=== PATIENT | male | born 1985 | race Caucasian/White ===

== ENCOUNTER 2018-01-29 15:51 | Emergency (ER) | payer OTHER ==
[2018-01-29 16:39] VITALS: BP 105/66; PULSE 125; RESP 18
[2018-01-29] MEDS ORDERED: VANCOMYCIN 1,250 MG in SODIUM CHLORIDE 0.9% 250 ML IVPB STA (18:11)
[2018-01-29] MEDS ORDERED: SODIUM CHLORIDE 0.9% 1,000 ML IV STA (18:13)
[2018-01-29] MEDS ORDERED: AMPICILLIN-SULBACTAM 3 GM in SODIUM CHLORIDE 0.9% 100 ML IVPB STA (18:13)
--- NOTE | 2018-01-29 18:22 | ED ---
General Adult HPI - General Chief complaint: Eye Problems Stated complaint: Eye pain Source: patient Mode of arrival: ambulatory Limitations: no limitations - History of Present Illness Initial comments: Dictation was produced using [employer] dictation software. please excuse any grammatical, word or spelling errors. Chief Complaint: 32-year-old male with past medical history of throat cancer, status post chemotherapy, chronic pain presents with left eye pain. History of Present Illness: He sees had an infected eye for approximately one week. He states that his symptoms started about 7 days ago. He was seen at a clinic where he was given prescription for outpatient antibiotics. He states his symptoms and I go in and actually got worse. He follow-up by the emergency room and was told to our emergency department. Patient is complaining by father. Patient's medical history is complicated with cancer status post chemotherapy for throat cancer. He's had bilateral myringotomy tubes. Patient has any constitutional symptoms. Denies any vision loss. He states his eyes are always swollen however when he opens them he doesn't have any vision loss. He is complaining of some minor pain with eye movements. The ROS documented in this emergency department record has been reviewed and confirmed by me. Those systems with pertinent positive or negative responses have been documented in the HPI. All other systems are other negative and/or noncontributory. - Related Data Home Medications Medication Instructions Recorded Confirmed Acyclovir 400 mg PO BID 01/29/18 01/29/18 Amoxicillin 500 mg PO BID 01/29/18 01/29/18 Enoxaparin [Lovenox] 60 mg SQ Q12H 01/29/18 01/29/18 Ergocalciferol [Vitamin D2] 50,000 unit PO WEFR 01/29/18 01/29/18 Fenofibrate [Lofibra] 54 mg PO DAILY 01/29/18 01/29/18 Gabapentin [Neurontin] 900 mg PO TID 01/29/18 01/29/18 Magnesium Oxide [Mag-Ox] 250 mg PO DAILY 01/29/18 01/29/18 Morphine Sulfate ER [Ms Contin] 30 mg PO TID 01/29/18 01/29/18 Multivitamins, Thera [Multivitamin 1 tab PO DAILY 01/29/18 01/29/18 (formulary)] Nicotine 21Mg/24Hr Patch [Habitrol 1 patch TRANSDERM DAILY 01/29/18 01/29/18 21Mg/24Hr Patch] Polyethylene Glycol 3350 [Miralax] 17 gm PO DAILY 01/29/18 01/29/18 Prochlorperazine [Compazine] 10 mg PO Q6H PRN 01/29/18 01/29/18 Sennosides [Senna] 8.6 mg PO HS PRN 01/29/18 01/29/18 Sulfamethox-Tmp 800-160Mg [Bactrim 1 tab PO Q12HR 01/29/18 01/29/18 DS 800-160 mg] Ursodiol 300 mg PO BID 01/29/18 01/29/18 Venlafaxine HCl [Effexor] 75 mg PO DAILY 01/29/18 01/29/18 levOCARNitine [Levocarnitine] 330 mg PO TID 01/29/18 01/29/18 Previous Rx's Medication Instructions Recorded Clindamycin [Cleocin] 450 mg PO Q8H #45 capsule 01/29/18 Allergies Allergy/AdvReac Type Severity Reaction Status Date / Time No Known Allergies Allergy Verified 01/29/18 18:00 Review of Systems ROS Statement: Those systems with pertinent positive or pertinent negative responses have been documented in the HPI. ROS Other: All systems not noted in ROS Statement are negative. 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 Cardiovascular: Heart regular rate and rhythm, S1&S2 audible, no murmurs, rubs or gallops Chest: Lungs clear to auscultation bilaterally, no rhonchi, no wheeze, no rales Abdomen: Bowel sounds present, abdomen soft, non-tender, non-distended, no organomegaly Musculoskeletal: Pulses present and equal in all extremities, no peripheral edema Motor: Power 5/5 bilaterally, no focal deficits noted Neurological: CN II-XII grossly intact, no focal motor or sensory deficits noted Skin: Intact with no visualized rashes Psych: Normal affect and mood Limitations: no limitations Course Vital Signs 01/29/18 01/29/18 16:34 19:18 Temperature 98.3 F 98.8 F Pulse Rate 125 H Respiratory 18 Rate Blood Pressure 105/66 O2 Sat by Pulse 98 Oximetry Medical Decision Making - Medical Decision Making ED course: 32-year-old male presents with clinical presentation of preseptal cellulitis versus orbital cellulitis. Vital signs upon arrival shows heart rate of 125, rest of vital signs within normal limits. Patient failed a course of outpatient antibiotics. Patient given Unasyn and vancomycin. He is also given some morphine for his pain. Laboratory evaluation obtained. There is hemoglobin of 10.0. Rest of CBC is unremarkable. Laboratory evaluation shows sodium of 1:30. Rest of labs are grossly unremarkable. Computed tomography scan of the face showed extensive soft tissue swelling of the paranasal sinuses. There is left-sided except, most. All these findings could relate to lymphoma this involvement however there is suspicion that it is also infectious. No drainable abscess noted. Discussed patient case with his oncologist follow Dr. Grace who recommends that patient be transferred to [facility]. Patient does not want to be transferred there. Discussed patient case with our ENT doctor Dr. Lau who recommends that this is not something that he is normally involved with. Discussed patient case with Dr. Ulrich our home improvement contractor on-call who states that this is outside of his realm of work. Discussed patient case with Dr. Ugarte who also recommends patient be transferred to [facility]. Discussed the patient that he should go to [facility] for further care. He does have an appointment in 2 days ago there. Patient refuses to be transferred to [facility] were his usual care is. Discussed with patient that he could lose his vision or function in the left eye region. He could also get worsening infection with extension into his troponin. Patient understands and is willing to leave AGAINST MEDICAL ADVICE. Patient given prescription for Levaquin. He is urged to follow-up that [facility] in 2 days. Patient told to go there she did express any worsening symptoms. Patient understands the risk of refusing transfer to [facility]. - Lab Data Result diagrams: 01/29/18 18:02 01/29/18 18:02 Lab Results 01/29/18 01/29/18 01/29/18 Range/Units 17:04 18:02 18:02 WBC 6.9 (3.8-10.6) k/uL RBC 3.53 L (4.30-5.90) m/uL Hgb 10.0 L (13.0-17.5) gm/dL Hct 31.0 L (39.0-53.0) % MCV 87.8 (80.0-100.0) fL MCH 28.4 (25.0-35.0) pg MCHC 32.3 (31.0-37.0) g/dL RDW 18.3 H (11.5-15.5) % Plt Count 425 (150-450) k/uL Neutrophils % 87 % Lymphocytes % 8 % Monocytes % 4 % Eosinophils % 0 % Basophils % 0 % Neutrophils # 6.0 (1.3-7.7) k/uL Lymphocytes # 0.5 L (1.0-4.8) k/uL Monocytes # 0.3 (0-1.0) k/uL Eosinophils # 0.0 (0-0.7) k/uL Basophils # 0.0 (0-0.2) k/uL Poikilocytosis Slight Anisocytosis Slight Sodium 130 L (137-145) mmol/L Potassium 4.6 (3.5-5.1) mmol/L Chloride 95 L (98-107) mmol/L Carbon Dioxide 25 (22-30) mmol/L Anion Gap 10 mmol/L BUN 22 H (9-20) mg/dL Creatinine 0.66 (0.66-1.25) mg/dL Est GFR (CKD-EPI)AfAm >90 (>60 ml/min/1.73 sqM) Est GFR (CKD-EPI)NonAf >90 (>60 ml/min/1.73 sqM) Glucose 118 H (74-99) mg/dL Plasma Lactic Acid Luis A 1.0 (0.7-2.0) mmol/L Calcium 8.9 (8.4-10.2) mg/dL Total Bilirubin 0.3 (0.2-1.3) mg/dL AST 81 H (17-59) U/L ALT 70 (21-72) U/L Alkaline Phosphatase 102 (38-126) U/L Total Protein 6.6 (6.3-8.2) g/dL Albumin 3.2 L (3.5-5.0) g/dL Disposition Clinical Impression: Orbital cellulitis on left Disposition: HOME SELF-CARE Instructions: Orbital Cellulitis (ED) Prescriptions: Clindamycin [Cleocin] 450 mg PO Q8H #45 capsule Is patient prescribed a controlled substance at d/c from ED?: No Referrals: Garcia Vines MD [Primary Care Provider] - 1-2 days Time of Disposition: 21:28
[2018-01-29 19:08] LABS: Anisocytosis Slight; Basophils % (A) 0 %; Eosinophils % (A) 0 %; Lymphocytes # (A) 0.5 k/uL (1.0-4.8); Lymphocytes % (A) 8 %; MCH 28.4 pg (25.0-35.0); MCHC 32.3 g/dL (31.0-37.0); MCV 87.8 fL (80.0-100.0); Monocytes # (A) 0.3 k/uL (0-1.0); Monocytes % (A) 4 %; Neutrophils % (A) 87 %; Platelet Count 425 k/uL (150-450); Poikilocytosis Slight; RBC 3.53 m/uL (4.30-5.90); RDW 18.3 % (11.5-15.5); WBC 6.9 k/uL (3.8-10.6)
[2018-01-29] MEDS ORDERED: MORPHINE SULFATE 4 MG/ML SYRINGE IVP PRN (19:18)
[2018-01-29 19:19] VITALS: TEMP 98.8
[2018-01-29 19:19] LABS: ALT 70 U/L (21-72); AST 81 U/L (17-59); Albumin 3.2 g/dL (3.5-5.0); Alkaline Phosphatase 102 U/L (38-126); Anion Gap 10 mmol/L; Blood Urea Nitrogen 22 mg/dL (9-20); Calcium 8.9 mg/dL (8.4-10.2); Carbon Dioxide 25 mmol/L (22-30); Chloride 95 mmol/L (98-107); Glucose 118 mg/dL (74-99); Potassium 4.6 mmol/L (3.5-5.1); Sodium 130 mmol/L (137-145); Total Bilirubin 0.3 mg/dL (0.2-1.3); Total Protein 6.6 g/dL (6.3-8.2)
--- NOTE | 2018-01-29 20:05 | CT ---
EXAMINATION TYPE: CT facial bones w con DATE OF EXAM: 01/29/2018 COMPARISON: 01/27/2018 HISTORY: left eye pain, redness, swelling. pt states no known injury. pt is currently being treated f or lymphoma. CT DLP: 370.8 mGycm Automated exposure control for dose reduction was used. CONTRAST: CT scan of the facial bones is performed with IV Contrast, patient injected with 100 mL of Isovue 300 . TECHNIQUE: CT scan of the sinuses is performed without contrast, axial images are obtained, coronal r eformatted images are also reviewed. FINDINGS: There is soft tissue swelling anterior to the left maxilla and zygoma. There is left-sided exophthalmus. There is thickening of the retro-orbital soft tissues including extraocular muscles. Th ere is extensive opacification of the ethmoid air cells frontal sinuses. There is mucosal thickening with significant opacification also in the maxillary and sphenoid sinuses. The mandibular ring is int act. Maxilla is intact. I see no nasal bone fracture. The parotid glands are symmetric. There are mul tiple bilateral enlarged anterior triangle cervical lymph nodes that measure up to 15 mm. The submand ibular salivary glands are symmetric. There is increased soft tissue density in the posterior nasopha rynx. There is also some thickening of soft tissues around the hypopharynx. IMPRESSION: There is extensive soft tissue swelling with extensive opacification of the paranasal sin uses. There is left-sided exophthalmus. Exophthalmos appears worse than recent exam of 01/27/2018. Al l of the findings could relate to lymphomatous involvement. There is pharyngeal increased density als o consistent with inflammatory process and lymphoma.
== END 2018-01-29 21:45 | disposition home or self-care (01) ==
LOC: EC 15:51
DX: H05.012 Cellulitis of left orbit (principal); J34.89 Other specified disorders of nose and nasal sinuses; G89.29 Other chronic pain; F17.200 Nicotine dependence, unspecified, uncomplicated; Z79.01 Long term (current) use of anticoagulants; Z79.891 Long term (current) use of opiate analgesic; Z79.899 Other long term (current) drug therapy; Z85.818 Personal history of malignant neoplasm of other sites of lip, oral cavity, and pharynx; Z92.21 Personal history of antineoplastic chemotherapy; Z96.22 Myringotomy tube(s) status
CPT/HCPCS: 36415; 80053; 83605; 85025; 87040; 70487; 99284; 96365; 96367; 96366; 96368; 96375; J3370; J2270; J0295; Q9967

== ENCOUNTER 2018-10-26 21:39 | Inpatient (IN) | payer OTHER ==
[2018-10-26] MEDS ORDERED: SODIUM CHLORIDE 0.9% 1,000 ML IV STA (22:33)
[2018-10-26] MEDS ORDERED: RX INFO: IV CONTRAST WAS GIVEN 1 EACH MISC MISCELLANE PRN (23:08)
[2018-10-26 23:16] LABS: Anisocytosis Moderate; HCT 33.3 % (39.0-53.0); HGB 10.3 gm/dL (13.0-17.5); MCH 24.4 pg (25.0-35.0); MCV 78.7 fL (80.0-100.0); Mean Platelet Volume 7.4; Microcytosis Moderate; Platelet Count 147 k/uL (150-450); RBC 4.24 m/uL (4.30-5.90); WBC 2.2 k/uL (3.8-10.6)
[2018-10-26 23:24] LABS: ALT 110 U/L (21-72); AST 97 U/L (17-59); African American GFR (CKD) >90 (>60 ml/min/1.73 sqM); Albumin 3.7 g/dL (3.5-5.0); Alkaline Phosphatase 74 U/L (38-126); Anion Gap 8 mmol/L; Blood Urea Nitrogen 18 mg/dL (9-20); Calcium 8.8 mg/dL (8.4-10.2); Carbon Dioxide 27 mmol/L (22-30); Chloride 101 mmol/L (98-107); Glucose 95 mg/dL (74-99); Potassium 4.1 mmol/L (3.5-5.1); Sodium 136 mmol/L (137-145); Total Bilirubin 0.2 mg/dL (0.2-1.3); Total Protein 6.6 g/dL (6.3-8.2)
--- NOTE | 2018-10-27 00:03 | CT ---
EXAM: CT Head Without Intravenous Contrast CLINICAL HISTORY: Pain TECHNIQUE: Axial computed tomography images of the head/brain without intravenous contrast. CTDI is 0.085, 0.085, 49.1 mGy and DLP is 1100.2 mGy-cm. This CT exam was performed using one or more of the following dose reduction techniques: automated exposure control, adjustment of the mA and/or kV according to patient size, and/or use of iterative reconstruction technique. COMPARISON: MRIs 02/10/2018 FINDINGS: Brain: Unremarkable. No acute hemorrhage, large hypodensity, or significant mass effect. Ventricles: Unremarkable. No ventriculomegaly. Bones/joints: Unremarkable. No acute fracture. Soft tissues: Increased frontal/left preseptal soft tissue edema. Sinuses: Similar mucosal thickening and opacification of the paranasal sinuses. Mastoid air cells: Partial opacification of the right mastoid air cells. IMPRESSION: No acute intracranial abnormality.
--- NOTE | 2018-10-27 00:04 | CT ---
EXAM: CT Maxillofacial With Intravenous Contrast CLINICAL HISTORY: Pain TECHNIQUE: Axial computed tomography images of the face with intravenous contrast. CTDI is 45.2 mGy and DLP is 1003 mGy-cm. This CT exam was performed using one or more of the following dose reduction techniques: automated exposure control, adjustment of the mA and/or kV according to patient size, and/or use of iterative reconstruction technique. COMPARISON: 01/29/2018 FINDINGS: Bones/joints: No acute fracture. Soft tissues: Increased frontal/left preseptal soft tissue edema. Persistent thickening of the left retro-orbital soft tissues. Orbits: Unremarkable. No exophthalmus. Sinuses: Similar mucosal thickening and opacification of the paranasal sinuses. No air-fluid levels. Mastoid air cells: Partial opacification of the right mastoid air cells. IMPRESSION: Increased frontal/left preseptal soft tissue edema. Persistent partial opacification of the paranasal sinuses. Findings may be related to lymphomatous involvement.
[2018-10-27 00:07] LABS: Band Neutrophils % 1 %; Lymphocytes # (M) 0.62 k/uL (1.0-4.8); Monocytes # (M) 0.24 k/uL (0-1.0); Neutrophils % (M) 60 %; Nucleated Red Blood Cells 0 /100 WBC (0-0); Total Cells Counted 100
[2018-10-27] MEDS ORDERED: VANCOMYCIN IV PER PHARMACY 1 EACH MISC MISCELLANE PRN (01:18)
[2018-10-27] MEDS ORDERED: VANCOMYCIN 1,000 MG in SODIUM CHLORIDE 0.9% 250 ML IVPB STA ×5 (01:22→01:23)
--- NOTE | 2018-10-27 01:33 | ED ---
General Adult HPI - General Source: patient, RN notes reviewed, old records reviewed Mode of arrival: ambulatory Limitations: no limitations <Enrrique Bowden - Last Filed: 10/27/18 01:50> <Manuelito Ball - Last Filed: 10/27/18 04:54> - General Chief complaint: Skin/Abscess/Foreign Body Stated complaint: Facial infection/Swelling Time Seen by Provider: 10/26/18 22:14 - History of Present Illness Initial comments: 33-year-old male patient with past history of non-Hodgkin's lymphoma presents to ED with facial swelling approximately 3 weeks. She reports that he had previously received chemotherapy and treatment at [facility]. Patient reportedly is believed to be in remission until it was determined approximately 1 month ago that his cancer has had a recurrence. Patient states that he hasn't previously had similar facial swelling approximately one year ago. Reports that approximately 3 weeks ago he began to develop worsening facial swelling on his eyes and his lips bilaterally. She states this has progressively worsened. Patient also reports that he has developed some erythema around his nail region. Denies any fevers chills, nausea vomiting diarrhea, chest pain or shortness of breath. Patient states that he is extending to establish care with her oncologist in the [place] region. Systemic: Pt denies fatigue, fever/chills, rash. Pt denies weakness, night sweats, weight loss. Neuro: Pt denies headache, visual disturbances, syncope or pre-syncope. HEENT: Pt denies ocular discharge or irritation, otalgia, rhinorrhea, pharyngitis or notable lymphadenopathy. Cardiopulmonary: Pt denies chest pain, SOB, heart palpitations, dyspnea on exertion. Abdominal/GI: Pt denies abdominal pain, n/v/d. : Pt denies dysuria, burning w/ urination, frequency/urgency. Denies new onset urinary or bowel incontinence. MSK: Pt denies myalgia, loss of strength or function in extremities. Neuro: Pt denies new onset weakness, paresthesias. (Enrrique Bowden) - Related Data Home Medications Medication Instructions Recorded Confirmed Levofloxacin [Levaquin] 750 mg PO DAILY 10/26/18 10/26/18 Linezolid [Zyvox] 600 mg PO Q12HR 10/26/18 10/26/18 Lovenox (Unknown Mg) 1 injection SQ DAILY 10/26/18 10/26/18 metroNIDAZOLE [Flagyl] 500 mg PO TID 10/26/18 10/26/18 Allergies Allergy/AdvReac Type Severity Reaction Status Date / Time No Known Allergies Allergy Verified 10/26/18 22:42 Review of Systems ROS Other: All systems not noted in ROS Statement are negative. <Enrrique Bowden - Last Filed: 10/27/18 01:50> ROS Other: All systems not noted in ROS Statement are negative. <Manuelito Ball - Last Filed: 10/27/18 04:54> ROS Statement: Those systems with pertinent positive or pertinent negative responses have been documented in the HPI. 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 HEENT: NC/AT, trachea midline, neck supple, no lymphadenopathy. Posterior pharynx non erythematous, without exudates. External ears appear normal, without discharge. Diffuse swelling noted in anterior face. Swelling of the eyes bilaterally, lips. No edema of skull. Erythema noted to nares, no discharge. Cardiopulmonary: RRR, no murmurs, rubs or gallops, no JVD noted. Lungs CTAB in anterior and posterior danielson. No peripheral edema. Abdominal exam: Abdomen soft and non-distended. Abdomen non-tender to palpation in all 4 quadrants. Bowel sounds active in LLQ. No hepatosplenomegaly. No ecchymosis Neuro: CN II-XII grossly intact. No nuchal rigidity. No raccon eyes, no melara sign, no hemotympanum. No cervical spinal tenderness. MSK: No posterior calf tenderness bilaterally, homans sign negative bilaterally. Posterior tibialis and radial pulse +2 bilaterally. Sensation intact in upper and lower extremities. Full active ROM in upper and lower extremities, 5/5 stregnth. (Enrrique Bowden) Course Vital Signs 10/26/18 10/27/18 10/27/18 21:55 00:10 01:19 Temperature 98.4 F 99.2 F 99.8 F H Pulse Rate 100 88 72 Respiratory 18 18 18 Rate Blood Pressure 121/74 106/68 106/68 O2 Sat by Pulse 100 10 L 100 Oximetry 10/27/18 10/27/18 02:22 04:19 Temperature 99.1 F 99.2 F Pulse Rate 97 90 Respiratory 18 18 Rate Blood Pressure 95/58 118/77 O2 Sat by Pulse 98 100 Oximetry Medical Decision Making - Lab Data Result diagrams: 10/26/18 23:03 10/26/18 23:03 <Enrrique Bowden - Last Filed: 10/27/18 01:50> - Lab Data Result diagrams: 10/26/18 23:03 10/26/18 23:03 <Manuelito Ball - Last Filed: 10/27/18 04:54> - Medical Decision Making 33-year-old male patient history of non-Hodgkin's lymphoma, previous admission, now thought to be active presents to ED with 3 weeks of facial swelling. Patient also reports erythema to nares. Patient vital signs stable, low-grade fever at time of admission. Physical exam displayed: Swelling of the eyes bilaterally, lips. No edema of skull. Erythema noted to nares, no discharge. Left investigations revealed mild neutropenia of 2.2. Otherwise nonimpressive. CT facial bones with contrast displayed increase frontal/left preseptal soft tissue edema. Persistent partial opacification of the pad of her nasal sinuses. Findings may be related to lymphomatous involvement. CT brain without contrast displayed no acute intracranial abnormality. Patient started on IV an tibiotics for possible facial cellulitis. Patient will be admitted to oncology - Dr. Freemanfor further evaluation. Case discussed with Dr. Camara. (Enrrique Bowden) I saw this patient in conjunction with the physician events administrative assistant. I performed independent history and physical exam. Agree with case management. (Manuelito Ball) - Lab Data Lab Results 10/26/18 10/26/18 Range/Units 23:03 23:03 WBC 2.2 L (3.8-10.6) k/uL RBC 4.24 L (4.30-5.90) m/uL Hgb 10.3 L (13.0-17.5) gm/dL Hct 33.3 L (39.0-53.0) % MCV 78.7 L (80.0-100.0) fL MCH 24.4 L (25.0-35.0) pg MCHC 31.0 (31.0-37.0) g/dL RDW 21.0 H (11.5-15.5) % Plt Count 147 L (150-450) k/uL Neutrophils % (Manual) 60 % Band Neutrophils % 1 % Lymphocytes % (Manual) 28 % Monocytes % (Manual) 11 % Neutrophils # (Manual) 1.30 (1.3-7.7) k/uL Lymphocytes # (Manual) 0.62 L (1.0-4.8) k/uL Monocytes # (Manual) 0.24 (0-1.0) k/uL Nucleated RBCs 0 (0-0) /100 WBC Manual Slide Review Performed Anisocytosis Moderate Microcytosis Moderate Sodium 136 L (137-145) mmol/L Potassium 4.1 (3.5-5.1) mmol/L Chloride 101 (98-107) mmol/L Carbon Dioxide 27 (22-30) mmol/L Anion Gap 8 mmol/L BUN 18 (9-20) mg/dL Creatinine 0.65 L (0.66-1.25) mg/dL Est GFR (CKD-EPI)AfAm >90 (>60 ml/min/1.73 sqM) Est GFR (CKD-EPI)NonAf >90 (>60 ml/min/1.73 sqM) Glucose 95 (74-99) mg/dL Calcium 8.8 (8.4-10.2) mg/dL Total Bilirubin 0.2 (0.2-1.3) mg/dL AST 97 H (17-59) U/L ALT 110 H (21-72) U/L Alkaline Phosphatase 74 (38-126) U/L Total Protein 6.6 (6.3-8.2) g/dL Albumin 3.7 (3.5-5.0) g/dL Disposition Is patient prescribed a controlled substance at d/c from ED?: No <Barkyolis,Enrrique J - Last Filed: 10/27/18 01:50> <Manuelito Ball - Last Filed: 10/27/18 04:54> Clinical Impression: Cellulitis Disposition: ADMITTED IP TO THIS HOSP Condition: Serious
--- NOTE | 2018-10-27 01:33 | ED ---
Skin/Abscess/FB HPI - General Chief complaint: Skin/Abscess/Foreign Body Stated complaint: Facial infection/Swelling Time Seen by Provider: 10/26/18 22:14 Source: patient Mode of arrival: ambulatory Limitations: no limitations - Related Data Home Medications Medication Instructions Recorded Confirmed Lovenox (Unknown Mg) 1 injection SQ DAILY 10/26/18 10/26/18 metroNIDAZOLE [Flagyl] 500 mg PO TID 10/26/18 10/26/18 Previous Rx's Medication Instructions Recorded Meropenem [Merrem] 1 gm IVPB Q8H #42 vial 10/28/18 Pantoprazole [Protonix] 40 mg PO AC-BID 60 Days #30 10/28/18 tablet. ALPRAZolam [Xanax] 0.25 mg PO Q6HR PRN 3 Days #12 tab 10/29/18 Ibuprofen [Motrin] 600 mg PO QID PRN #60 tab 10/29/18 Meropenem [Merrem] 1 gm IVPB Q8HR vial 10/29/18 Morphine Sulfate Ir [MSIR] 15 mg PO Q3HR PRN 3 Days #24 tablet 10/29/18 Mupirocin 2% Oint [Bactroban 2% 1 applic TOPICAL TID #1 applic 10/29/18 Oint] Vancomycin 1,000 mg IVPB Q8H #42 vial 10/29/18 predniSONE 10 mg PO DIRECTED #30 tab 10/29/18 Allergies Allergy/AdvReac Type Severity Reaction Status Date / Time No Known Allergies Allergy Verified 10/26/18 22:42 Review of Systems ROS Statement: Those systems with pertinent positive or pertinent negative responses have been documented in the HPI. ROS Other: All systems not noted in ROS Statement are negative. 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 Past Psychological History: No Psychological Hx Reported Smoking Status: Current every day smoker Past Alcohol Use History: None Reported Past Drug Use History: Marijuana - Past Family History Grandma Family Medical History: Diabetes Mellitus Mother Additional Family Medical History / Comment(s): HIV General Exam Limitations: no limitations Course Vital Signs 10/26/18 10/27/18 10/27/18 21:55 00:10 01:19 Temperature 98.4 F 99.2 F 99.8 F H Pulse Rate 100 88 72 Pulse Rate [ Left] Respiratory 18 18 18 Rate Blood Pressure 121/74 106/68 106/68 Blood Pressure [Left Arm] O2 Sat by Pulse 100 10 L 100 Oximetry 10/27/18 10/27/18 10/27/18 02:22 04:19 05:10 Temperature 99.1 F 99.2 F 98.3 F Pulse Rate 97 90 Pulse Rate [ 97 Left] Respiratory 18 18 18 Rate Blood Pressure 95/58 118/77 Blood Pressure 111/67 [Left Arm] O2 Sat by Pulse 98 100 98 Oximetry - Reevaluation(s) Reevaluation #1: 10/27/18 01:[address] Freeman from oncology. Medical Decision Making - Medical Decision Making I saw this patient in conjunction with the physician assistant womens volleyball coach. I performed independent history and physical exam. Agree with case management. I discussed case with Dr. Freeman, who requested that if the patient is going to be admitted that he be a primary admission for their service to see rather than active as design center consultant group. - Lab Data Result diagrams: 10/29/18 10:30 10/29/18 08:40 Lab Results 10/26/18 10/26/18 10/26/18 Range/Units 23:03 23:03 23:03 WBC 2.2 L (3.8-10.6) k/uL RBC 4.24 L (4.30-5.90) m/uL Hgb 10.3 L (13.0-17.5) gm/dL Hct 33.3 L (39.0-53.0) % MCV 78.7 L (80.0-100.0) fL MCH 24.4 L (25.0-35.0) pg MCHC 31.0 (31.0-37.0) g/dL RDW 21.0 H (11.5-15.5) % Plt Count 147 L (150-450) k/uL Neutrophils % (Manual) 60 % Band Neutrophils % 1 % Lymphocytes % (Manual) 28 % Monocytes % (Manual) 11 % Neutrophils # (Manual) 1.30 (1.3-7.7) k/uL Lymphocytes # (Manual) 0.62 L (1.0-4.8) k/uL Monocytes # (Manual) 0.24 (0-1.0) k/uL Nucleated RBCs 0 (0-0) /100 WBC Manual Slide Review Performed Anisocytosis Moderate Microcytosis Moderate Sodium 136 L (137-145) mmol/L Potassium 4.1 (3.5-5.1) mmol/L Chloride 101 (98-107) mmol/L Carbon Dioxide 27 (22-30) mmol/L Anion Gap 8 mmol/L BUN 18 (9-20) mg/dL Creatinine 0.65 L (0.66-1.25) mg/dL Est GFR (CKD-EPI)AfAm >90 (>60 ml/min/1.73 sqM) Est GFR (CKD-EPI)NonAf >90 (>60 ml/min/1.73 sqM) Glucose 95 (74-99) mg/dL Calcium 8.8 (8.4-10.2) mg/dL Total Bilirubin 0.2 (0.2-1.3) mg/dL AST 97 H (17-59) U/L ALT 110 H (21-72) U/L Alkaline Phosphatase 74 (38-126) U/L Total Protein 6.6 (6.3-8.2) g/dL Albumin 3.7 (3.5-5.0) g/dL Hepatitis A IgM Ab Non-Reactive (Non-Reactive) Hep Bs Antigen Non-Reactive (Non-Reactive) Hep B Core IgM Ab Non-Reactive (Non-Reactive) Hep C IgG Ab Non-Reactive (Non-Reactive) Disposition Clinical Impression: Cellulitis Disposition: ADMITTED IP TO THIS HOSP Condition: Serious
[2018-10-27] MEDS ORDERED: IBUPROFEN 400 MG TAB PO PRN (01:48)
[2018-10-27] MEDS ORDERED: NALOXONE 0.4 MG/ML 1 ML VIAL IV PRN (01:48)
[2018-10-27] MEDS ORDERED: ACETAMINOPHEN TAB 325 MG TAB PO PRN (01:48)
[2018-10-27] MEDS ORDERED: NICOTINE 21MG/24HR PATCH TRANSDERM STA (02:07)
[2018-10-27] MEDS: MORPHINE SULFATE 4 MG/ML SYRINGE IV PRN ×5 (04:14→22:35)
[2018-10-27] MEDS: SODIUM CHLORIDE 0.9% 1,000 ML IV SCH ×2 (05:33→12:54)
[2018-10-27] MEDS: ENOXAPARIN 40 MG/0.4 ML SYRINGE SQ SCH (11:22)
[2018-10-27] MEDS ORDERED: methylPREDNISolone SOD SUCCI 40 MG/ML 1 ML VIAL IV STA (12:07)
--- NOTE | 2018-10-27 13:22 | P.HPIM ---
History of Present Illness 33-year-old pleasant gentleman with a known history of non-Hodgkin's lymphoma came in with complaints of facial swelling redness. Denied any fever at home but does have fever here 0.8 CAT scan of the face and head and neck did show significant sinusitis maybe due to lymphatic occlusion patient does have local is of temperature preseptal cellulitis for which patient was started on vancomycin as well as post-septal involvement of the orbits. Patient ice is swollen can't even open eyes because of which I'll give a dose of prednisone to decrease the inflammation swelling. Review of Systems REVIEW OF SYSTEMS: CONSTITUTIONAL: No fever, no malaise, no fatigue. HEENT: As mentioned in HPI CARDIOVASCULAR: No chest pain, orthopnea, PND, no palpitations, no syncope. PULMONARY: No shortness of breath, no cough, no hemoptysis. GASTROINTESTINAL: No diarrhea, no nausea, no vomiting, no abdominal pain. NEUROLOGICAL: No headaches, no weakness, no numbness. HEMATOLOGICAL: Denies any bleeding or petechiae. GENITOURINARY: Denies any burning micturition, frequency, or urgency. MUSCULOSKELETAL/RHEUMATOLOGICAL: Denies any joint pain, swelling, or any muscle pain. ENDOCRINE: Denies any polyuria or polydipsia. The rest of the 14-point review of systems is negative. 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 He lives with henry. Smoking Status: Current every day smoker Past Alcohol Use History: None Reported Past Drug Use History: Marijuana Additional Drug Use History / Comment(s): Couple times a week for marijuana. - Past Family History Grandma Family Medical History: Diabetes Mellitus Mother Additional Family Medical History / Comment(s): HIV Medications and Allergies Home Medications Medication Instructions Recorded Confirmed Type Levofloxacin [Levaquin] 750 mg PO DAILY 10/26/18 10/26/18 History Linezolid [Zyvox] 600 mg PO Q12HR 10/26/18 10/26/18 History Lovenox (Unknown Mg) 1 injection SQ DAILY 10/26/18 10/26/18 History metroNIDAZOLE [Flagyl] 500 mg PO TID 10/26/18 10/26/18 History Allergies Allergy/AdvReac Type Severity Reaction Status Date / Time No Known Allergies Allergy Verified 10/26/18 22:42 Physical Exam Vitals: Vital Signs Temp Pulse Pulse Resp BP BP Pulse Ox 10/27/18 11:52 97.3 F L 92 18 120/82 99 10/27/18 08:00 18 10/27/18 05:10 98.3 F 97 18 111/67 98 10/27/18 04:19 99.2 F 90 18 118/77 100 10/27/18 02:22 99.1 F 97 18 95/58 98 10/27/18 01:19 99.8 F H 72 18 106/68 100 10/27/18 00:10 99.2 F 88 18 106/68 10 L 10/26/18 21:55 98.4 F 100 18 121/74 100 Intake and Output 10/26/18 10/27/18 10/27/18 22:59 06:59 14:59 Intake Total 200 Balance 200 Intake: Intake, IV Titration 80 Amount Sodium Chloride 0.9% 1, 80 000 ml @ 80 mls/hr IV . [id number] [facility] Rx#:[id number] Oral 120 Other: Voiding Method Toilet Weight 54.431 kg PHYSICAL EXAMINATION: GENERAL: The patient is alert and oriented x3, not in any acute distress. Well developed, well nourished. HEENT: Patient has significant swelling on the right side of the face patient does have swelling of left side of the face as well with the swelling of both ey elids swelling of nose.. EOMI. No scleral icterus. No conjunctival pallor. Normocephalic, atraumatic. No pharyngeal erythema. No thyromegaly. CARDIOVASCULAR: S1 and S2 present. No murmurs, rubs, or gallops. PULMONARY: Chest is clear to auscultation, no wheezing or crackles. ABDOMEN: Soft, nontender, nondistended, normoactive bowel sounds. No palpable organomegaly. MUSCULOSKELETAL: No joint swelling or deformity. EXTREMITIES: No cyanosis, clubbing, or pedal edema. NEUROLOGICAL: Gross neurological examination did not reveal any focal deficits. SKIN: No rashes. Results CBC & Chem 7: 10/26/18 23:03 10/26/18 23:03 Labs: Abnormal Lab Results - Last 24 Hours (Table) 10/26/18 10/26/18 Range/Units 23:03 23:03 WBC 2.2 L (3.8-10.6) k/uL RBC 4.24 L (4.30-5.90) m/uL Hgb 10.3 L (13.0-17.5) gm/dL Hct 33.3 L (39.0-53.0) % MCV 78.7 L (80.0-100.0) fL MCH 24.4 L (25.0-35.0) pg RDW 21.0 H (11.5-15.5) % Plt Count 147 L (150-450) k/uL Lymphocytes # (Manual) 0.62 L (1.0-4.8) k/uL Sodium 136 L (137-145) mmol/L Creatinine 0.65 L (0.66-1.25) mg/dL AST 97 H (17-59) U/L ALT 110 H (21-72) U/L Thrombosis Risk Factor Assmnt - Choose All That Apply Any of the Below Risk Factors Present?: No Other Risk Factors: No Other congenital or acquired thrombophilia - If yes, enter type in comment: No Thrombosis Risk Factor Assessment Level: Very Low Risk Assessment and Plan Plan: -Preceptors allied as orbital cellulitis: Patient was started on vancomycin and the Will use prednisone for inflammation. non-Hodgkin's lymphoma: Not started on chemotherapy at -Elevated liver enzymes minimal elevation will repeat liver enzymes tomorrow hepatitis panel will be obtained as well DVT prophylaxis with Lovenox and GI prophylaxis with Pepcid
[2018-10-27 14:13] VITALS: BMI 18.2
[2018-10-27] MEDS: VANCOMYCIN 1,000 MG in SODIUM CHLORIDE 0.9% 250 ML IVPB SCH ×2 (14:27→21:35)
[2018-10-27] MEDS: KETOROLAC 30 MG/ML 1 ML VIAL IVP PRN ×2 (14:30→21:36)
--- NOTE | 2018-10-27 15:06 | P.CONS ---
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 Garrison is a very pleasant male pt seen for the 1st time on 10/[address] 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 He had embolization for persistent epistaxis at [facility], biopsy done confirmed the diagnosis, BRISEYDA positive. Staging PET 11/03/17 revealed extensive uptake in paranasal sinuses, bone marrow biopsy was negative. 11/11/17 started GELOX regimen, had 2 cycles, repeat PET revealed IN. In January 2018 he was re-admitted to [facility] with progressing pain and swelling of left sided face and proptosis, repeat biopsy was consistent with persistent disease. 02/12/2019 he was started on chemoradiation with weekly cisplatin x 4 weeks, completed 04/02/2018. PET 06/10/18 revealed SEBAS. He was lost to follow up and missed multiple appt with Dr. Grace at [facility]. 09/2018 he presented with increasing swelling and purulent drainage from left eye, repeat imaging revealed progressive disease and new rim enhancing fluid collection measuring 1.0x1.4cm draining into soft tissue defect in medial orbit. He was recently discharged from [facility], treatment with keytruda was recommended. C/O fatigue, progressive facial swelling with eye and facial pain, drainage from left orbit is stable, occasional night sweats, lost about 20 pounds over the last 6 months, sinus pressure and fullness, no vision loss but he cannot open eyes right now, GUY, no dizziness, no other drainage from face, in mouth or throat, no chills, he is able to tolerate diet, no nausea, vomiting, cough, chest pain, abd pain, changes in bowel or bladder habits, bleeding, swelling in the legs, no other skin lesions. 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 He lives with henry. Smoking Status: Current every day smoker Past Alcohol Use History: None Reported Past Drug Use History: Marijuana Additional Drug Use History / Comment(s): Couple times a week for marijuana. IVDA. - Past Family History Grandma Family Medical History: Diabetes Mellitus Mother Additional Family Medical History / Comment(s): HIV Medications and Allergies Home Medications Medication Instructions Recorded Confirmed Type Levofloxacin [Levaquin] 750 mg PO DAILY 10/26/18 10/26/18 History Linezolid [Zyvox] 600 mg PO Q12HR 10/26/18 10/26/18 History Lovenox (Unknown Mg) 1 injection SQ DAILY 10/26/18 10/26/18 History metroNIDAZOLE [Flagyl] 500 mg PO TID 10/26/18 10/26/18 History Allergies Allergy/AdvReac Type Severity Reaction Status Date / Time No Known Allergies Allergy Verified 10/26/18 22:42 Physical Exam Vitals: Vital Signs Temp Pulse Pulse Resp BP BP Pulse Ox 10/27/18 05:10 98.3 F 97 18 111/67 98 10/27/18 04:19 99.2 F 90 18 118/77 100 10/27/18 02:22 99.1 F 97 18 95/58 98 10/27/18 01:19 99.8 F H 72 18 106/68 100 10/27/18 00:10 99.2 F 88 18 106/68 10 L 10/26/18 21:55 98.4 F 100 18 121/74 100 Intake and Output 10/26/18 10/27/18 10/27/18 22:59 06:59 14:59 Intake Total 200 Balance 200 Intake: Intake, IV Titration 80 Amount Sodium Chloride 0.9% 1, 80 000 ml @ 80 mls/hr IV . [id number] [facility] Rx#:[id number] Oral 120 Other: Weight 54.431 kg - Constitutional General appearance: cooperative, mild distress, thin - EENT severe periorbital, upper lip and nasal swelling, oral mucosa hard to completely evaluate but tongue is not coated, no visible masses - Neck Neck: no lymphadenopathy - Respiratory Respiratory: bilateral: CTA - Cardiovascular Rhythm: regular Heart sounds: normal: S1, S2 Abnormal Heart Sounds: no systolic murmur, no diastolic murmur, no rub, no S3 Gallop, no S4 Gallop, no click, no other leg Peripheral Edema: bilateral: None - Gastrointestinal General gastrointestinal: no absent bowel sounds, no decreased bowel sounds, no distended, no hepatomegaly, no hyperactive bowel sounds, normal bowel sounds, no organomegaly, no rigid, scaphoid, soft, no splenomegaly, no tenderness, no umbilical hernia, no ventral hernia - Integumentary Tattoo on arms, no skin lesions visible-see HEENT - Neurologic Nop gross deficits, face is compromised due to swelling - Musculoskeletal Musculoskeletal: strength equal bilaterally - Psychiatric Psychiatric: A&O x's 3, appropriate affect, intact judgment & insight Results CBC & Chem 7: 10/26/18 23:03 10/26/18 23:03 Labs: Abnormal Lab Results - Last 24 Hours (Table) 10/26/18 10/26/18 Range/Units 23:03 23:03 WBC 2.2 L (3.8-10.6) k/uL RBC 4.24 L (4.30-5.90) m/uL Hgb 10.3 L (13.0-17.5) gm/dL Hct 33.3 L (39.0-53.0) % MCV 78.7 L (80.0-100.0) fL MCH 24.4 L (25.0-35.0) pg RDW 21.0 H (11.5-15.5) % Plt Count 147 L (150-450) k/uL Lymphocytes # (Manual) 0.62 L (1.0-4.8) k/uL Sodium 136 L (137-145) mmol/L Creatinine 0.65 L (0.66-1.25) mg/dL AST 97 H (17-59) U/L ALT 110 H (21-72) U/L Comments: Reviewed report for CT face CT Scan - head: report reviewed Assessment and Plan (1) Extranodal NK/T-cell lymphoma, nasal type Narrative/Plan: Recurrent disease, previously treated at [facility]. We were pending PD-L1 authorization ([facility] has the current auth and has to cancel it before we can get auth) but, due to pt increasingly compromised situation CD-30 target immu notherapy with brentuximab vedotin which we obtained approval for before this documentation! Want pt to be seen by ID for evaluation and recommendation then, get pt discharged as soon as safely possible so he can begin treatment. Pt must be discharged 24 hours before he can receive infusion outpatient. We will stay in close contact with Attending and ID. Current Visit: Yes Status: Chronic Priority: High Code(s): C86.0 - EXTRANODAL NK/T-CELL LYMPHOMA, NASAL TYPE SNOMED Code(s): 129469239 (2) Cellulitis Narrative/Plan: Periorbital swelling, allergic reaction, infection, mostly suspect disease progression? ID consulted for evaluation and recommendations. Current Visit: Yes Status: Acute Priority: High Code(s): L03.90 - CELLULITIS, UNSPECIFIED SNOMED Code(s): 855977383
[2018-10-27 19:09] LABS: Hepatitis A Antibody IgM Non-Reactive (Non-Reactive); Hepatitis B Core IgM Non-Reactive (Non-Reactive)
[2018-10-27] MEDS: FAMOTIDINE 20 MG TAB PO SCH (21:35)
[2018-10-27] MEDS: MUPIROCIN 2% OINT 22 GM TUBE TOPICAL SCH (21:37)
[2018-10-27] MEDS: SALT AND SODA MOUTHWASH 1,000 ML PO SCH (22:46)
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
[2018-10-28] MEDS: MEROPENEM 1 GM in SODIUM CHLORIDE 0.9% 100 ML IVPB SCH ×3 (01:02→17:40)
[2018-10-28] MEDS: SALT AND SODA MOUTHWASH 1,000 ML PO SCH ×5 (01:03→19:35)
[2018-10-28] MEDS: MORPHINE SULFATE 4 MG/ML SYRINGE IV PRN ×4 (02:50→21:55)
[2018-10-28] MEDS: VANCOMYCIN 1,000 MG in SODIUM CHLORIDE 0.9% 250 ML IVPB SCH ×3 (05:29→21:59)
[2018-10-28] MEDS: SODIUM CHLORIDE 0.9% 1,000 ML IV SCH ×2 (05:30→15:49)
[2018-10-28] MEDS: FAMOTIDINE 20 MG TAB PO SCH ×2 (07:43→21:55)
[2018-10-28] MEDS: ENOXAPARIN 40 MG/0.4 ML SYRINGE SQ SCH ×2 (07:43→11:45)
[2018-10-28] MEDS: predniSONE 20 MG TAB PO SCH (07:43)
[2018-10-28] MEDS: KETOROLAC 30 MG/ML 1 ML VIAL IVP PRN ×2 (07:46→15:50)
[2018-10-28] MEDS: MUPIROCIN 2% OINT 22 GM TUBE TOPICAL SCH ×3 (07:56→21:59)
[2018-10-28 08:29] LABS: ALT 88 U/L (21-72); AST 70 U/L (17-59); African American GFR (CKD) >90 (>60 ml/min/1.73 sqM); Albumin 2.7 g/dL (3.5-5.0); Alkaline Phosphatase 63 U/L (38-126); Anion Gap 4 mmol/L; Blood Urea Nitrogen 16 mg/dL (9-20); Calcium 8.5 mg/dL (8.4-10.2); Carbon Dioxide 28 mmol/L (22-30); Chloride 108 mmol/L (98-107); Glucose 98 mg/dL (74-99); Potassium 4.4 mmol/L (3.5-5.1); Sodium 140 mmol/L (137-145); Total Bilirubin 0.1 mg/dL (0.2-1.3); Total Protein 5.4 g/dL (6.3-8.2)
[2018-10-28] MEDS ORDERED: MORPHINE CONC SOLN 10mg/0.5mL ORAL SYRG PO PRN (11:02)
[2018-10-28] MEDS: NICOTINE 21MG/24HR PATCH TRANSDERM SCH (11:29)
[2018-10-28] MEDS ORDERED: VANCOMYCIN TROUGH DUE 1 EACH MISC MISCELLANE ONE (13:00)
--- NOTE | 2018-10-28 16:27 | P.PN ---
Subjective Progress Note Date: 10/28/18 Principal diagnosis: This is a 33-year-old male with a known history of non-Hodgkin's lymphoma was recently admitted for facial swelling and redness with cellulitis. Patient is being closely monitored. Dr. Hernandez is following the patient. Patient denies any shortness of breath, chest pain, palpitations, or throat swelling at this time. Patient does have significant orbital swelling of the left orbit in the eyelids are sealed shut due to the amount of swelling. The right displace orbital swelling but is able to see out of that eye. Patient is having a lot of nasal swelling and congestion as well. Patient is awaiting a PICC line as he will be receiving IV antibiotics and outpatient setting. Oncology is following the patient. Guarded prognosis. Objective - Vital Signs Vital signs: Vital Signs Temp 98.2 F 10/28/18 11:32 Pulse 71 10/28/18 11:32 Resp 17 10/28/18 11:32 BP 119/78 10/28/18 11:32 Pulse Ox 100 10/28/18 11:32 Intake & Output 10/27/18 10/28/18 10/28/18 18:59 06:59 18:59 Intake Total 1042.5 Balance 1042.5 Weight 54.431 kg Intake: Intake, IV Titration 1042.5 Amount Meropenem 1 gm In Sodium 100 Chloride 0.9% 100 ml @ 200 mls/hr IVPB Q8HR [facility] Rx#:[id number] Sodium Chloride 0.9% 1, 692.5 000 ml @ 80 mls/hr IV . [id number] [facility] Rx#:[id number] Vancomycin 1,000 mg In 250 Sodium Chloride 0.9% 250 ml @ 125 mls/hr IVPB Q8H [facility] Rx#:[id number] Other: Voiding Method Toilet Toilet Toilet Urinal Urinal # Voids 2 - Exam Gen: This is a 33-year-old male that is sitting up in bed and in no acute distress. Vital signs are 98.2F temp, pulse is 71, respirations are 17 and non-labored, blood pressure is 119/78, pulse ox is 100% on room air HEENT: Head is atraumatic, normocephalic. There is a profound amount of swelling of the left side of the face of upper and lower eyelids and unable to visualize the orbit, the right upper and lower eyelid had a large amount of swelling as well but is able to see out of the right eye. Significant swelling is noted of the nose with redness and crusting of the lower nares. NECK: Supple. No JVD. No lymphadenopathy. No thyromegaly. LUNGS: Clear to auscultation. No wheezes or rhonchi. No intercostal retractions. HEART: Regular rate and rhythm. No murmur. ABDOMEN: Soft. Bowel sounds are present. No masses. No tenderness. EXTREMITIES: No pedal edema. No calf tenderness. NEUROLOGICAL: Patient is awake, alert and oriented x3. Cranial nerves 2 through 12 are grossly intact. - Labs CBC & Chem 7: 10/26/18 23:03 10/28/18 07:20 Labs: Abnormal Lab Results - Last 24 Hours (Table) 10/28/18 Range/Units 07:20 Chloride 108 H (98-107) mmol/L Creatinine 0.55 L (0.66-1.25) mg/dL Total Bilirubin 0.1 L (0.2-1.3) mg/dL AST 70 H (17-59) U/L ALT 88 H (21-72) U/L Total Protein 5.4 L (6.3-8.2) g/dL Albumin 2.7 L (3.5-5.0) g/dL Microbiology - Last 24 Hours (Table) 10/26/18 23:03 Blood Culture - Preliminary Blood No Growth after 24 hours Assessment and Plan Assessment: Non-Hodgkin's lymphoma: Oncology is following Orbital cellulitis: Patient was started on IV antibiotic therapy. Infectious disease is following. Awaiting a PICC line placement in the morning and will most likely be discharged in the next 24 hours. Elevated liver enzymes with minimal elevation in her trending down ALT is 88, AST is 70. We will continue to monitor. Hepatitis panel is negative DVT prophylaxis with Lovenox: Will hold tomorrow's dose for PICC line placement GI prophylaxis with Pepcid Recommendations and discussion: Recommend continue current medications and symptomatic treatment. Closely monitor. Guarded prognosis. Further recommendations to follow. Probable discharge in the next 24 hours.
--- NOTE | 2018-10-28 17:58 | P.PN ---
Subjective Progress Note Date: 10/28/18 Principal diagnosis: Natural killer T-cell lymphoma, nasal subtype, intractable pain due to disease, suspect superimposed infection In follow-up today patient is still tolerating his oral intake, the pain regimen that he is here in the hospital is controlling his pain. No fevers, vomiting, he has had a bowel movement since admission. Objective - Vital Signs Vital signs: Vital Signs Temp 98.2 F 10/28/18 11:32 Pulse 71 10/28/18 11:32 Resp 17 10/28/18 11:32 BP 119/78 10/28/18 11:32 Pulse Ox 100 10/28/18 11:32 Intake & Output 10/27/18 10/28/18 10/28/18 18:59 06:59 18:59 Intake Total 1042.5 350 Output Total 1600 Balance 1042.5 -1250 Weight 54.431 kg Intake: Intake, IV Titration 1042.5 350 Amount Meropenem 1 gm In Sodium 100 Chloride 0.9% 100 ml @ 200 mls/hr IVPB Q8HR [facility] Rx#:[id number] Sodium Chloride 0.9% 1, 692.5 100 000 ml @ 80 mls/hr IV . [id number] [facility] Rx#:[id number] Vancomycin 1,000 mg In 250 250 Sodium Chloride 0.9% 250 ml @ 125 mls/hr IVPB Q8H [facility] Rx#:[id number] Output: Urine 1600 Other: Voiding Method Toilet Toilet Toilet Urinal Urinal # Voids 2 - Constitutional General appearance: Present: cooperative, no acute distress, thin - EENT EENT Comment(s): Periorbital swelling, nasal swelling and upper lip, causing speech deficiency. Patient is able to manually open his right eye slightly today. - Respiratory Respiratory: bilateral: CTA - Cardiovascular Rhythm: regular Heart sounds: normal: S1, S2 Abnormal Heart Sounds: Absent: systolic murmur, diastolic murmur, rub, S3 Gallop, S4 Gallop, click, other - Peripheral edema leg Peripheral Edema: bilateral: None - Gastrointestinal General gastrointestinal: Present: normal bowel sounds, scaphoid, soft - Musculoskeletal Musculoskeletal: Present: strength equal bilaterally - Psychiatric Psychiatric: Present: A&O x's 3, appropriate affect, intact judgment & insight - Labs CBC & Chem 7: 10/26/18 23:03 10/28/18 07:20 Labs: Abnormal Lab Results - Last 24 Hours (Table) 10/28/18 Range/Units 07:20 Chloride 108 H (98-107) mmol/L Creatinine 0.55 L (0.66-1.25) mg/dL Total Bilirubin 0.1 L (0.2-1.3) mg/dL AST 70 H (17-59) U/L ALT 88 H (21-72) U/L Total Protein 5.4 L (6.3-8.2) g/dL Albumin 2.7 L (3.5-5.0) g/dL Microbiology - Last 24 Hours (Table) 10/26/18 23:03 Blood Culture - Preliminary Blood No Growth after 24 hours Assessment and Plan (1) Cancer related pain Narrative/Plan: Likely exacerbated by superimposed infection as well. Pain medications have been adjusted to oral route. The next 24 hours pain control will be evaluated and titrated for optimal control so that appropriate prescriptions can be provided on discharge. Case was briefly discussed with attending as well who agrees with the plan. Medications for prevention of narcotic-induced constipation ordered. Current Visit: Yes Status: Acute Priority: High Code(s): G89.3 - NEOPLASM RELATED PAIN (ACUTE) (CHRONIC) SNOMED Code(s): 23040063718850 (2) Extranodal NK/T-cell lymphoma, nasal type Narrative/Plan: Recurrent disease, previously treated at [facility]. CD-30 target immunotherapy with brentuximab vedotin is approved. It has been ordered. Plan is for chemotherapy Thursday at 2 PM. Discussed case briefly with ID. patient's symptoms are improved with antibiotic therapy. And is to continue IV antibiotics. PICC line is placed. Case management is working on outpatient antibiotic administration. Current Visit: Yes Status: Chronic Priority: High Code(s): C86.0 - EXTRANODAL NK/T-CELL LYMPHOMA, NASAL TYPE SNOMED Code(s): 261638102 (3) Cellulitis Current Visit: Yes Status: Acute Priority: High Code(s): L03.90 - CELLULITIS, UNSPECIFIED SNOMED Code(s): 396778326
[2018-10-28] MEDS: IBUPROFEN 600 MG TAB PO SCH ×2 (19:33→23:04)
[2018-10-28] MEDS: ALPRAZolam 0.25 MG TAB PO SCH ×2 (19:34→23:04)
[2018-10-28] MEDS: PANTOPRAZOLE 40 MG TABLET PO SCH (21:55)
--- NOTE | 2018-10-28 22:38 | P.PN ---
Subjective Progress Note Date: 10/28/18 33-year-old male who has a history of NK/T cell lymphoma diagnosed approximately 1 year ago at which point in time there was involvement of the bilateral sinuses in the left orbital area. He was treated with chemotherapy and had progression of disease. Because the difficulties he is referred to [facility] and was treated. He then, because of progression of disease, was treated with a course of radiation therapy and cisplatin and apparently had significant clinical improvement. It is unrelated that he was no longer actively following up. He now presents last month with significant swelling and discomfort to the periorbital area bilaterally. He has significant swelling to the left eye such that its closed and he does not see through that eye. The right periorbital tissue also became very swollen. Because of increasing pain and discomfort and drainage he sought care at our facility. He does relate that he was at [facility] and was being treated with antibiotic therapy that included Zyvox, Levaquin, and Flagyl likely for what appeared to be a potential abscess related to the lymphoma near the left orbit. There is no notation that he was a surgical candidate. The patient was stressed by the situation at the [facility] and consequently did leave canalis presented to our facility. Local oncology is also seeing on consult. The patient believes that he's had a low-grade fever, he has had weight loss of greater than 20 pounds and is now become quite underweight. He does have some difficulties eating but is able to eat solid foods without choking or dysphagia. The patient does not have a port. 10/28/2018 patient does feel slightly better today. He however has had significant anxiety that has worsened due to his inability to smoke and his significant disease state. At one point he states to the nurse, why won't she let him smoke, he is going to anyway. At this time he is more calm and collected. He understands that with his active infection tobacco use inhibits his body to fight infection and causes him to have more pain and problems. Nicotine patch and chocolate ice cream have helped his mood. He does relate that the oral pain medication does not seem to be as effective, and this is related to the oncology team. Request for IV access as well as outpatient IV antibiotic therapy has been made trying to get authorization for his medication so that he can start his chemotherapy as soon as possible. Objective - Vital Signs Vital signs: Vital Signs Temp 98.2 F 10/28/18 11:32 Pulse 71 10/28/18 11:32 Resp 17 10/28/18 11:32 BP 119/78 10/28/18 11:32 Pulse Ox 100 10/28/18 11:32 Intake & Output 10/28/18 10/28/18 10/29/18 06:59 18:59 06:59 Intake Total 1042.5 350 Output Total 1600 Balance 1042.5 -1250 Intake: Intake, IV Titration 1042.5 350 Amount Meropenem 1 gm In Sodium 100 Chloride 0.9% 100 ml @ 200 mls/hr IVPB Q8HR JASMYN Rx#:[id number] Sodium Chloride 0.9% 1, 692.5 100 000 ml @ 80 mls/hr IV . [id number] JASMYN Rx#:[id number] Vancomycin 1,000 mg In 250 250 Sodium Chloride 0.9% 250 ml @ 125 mls/hr IVPB Q8H JASMYN Rx#:[id number] Output: Urine 1600 Other: Voiding Method Toilet Toilet Urinal Urinal - Exam 33-year-old male who despite his cancer was pleasant and cooperative, appreciative of the care he is receiving at our facility. HEENT: There is some improvement of swelling from lutheran to lutheran, bilateral periorbital area is grossly swollen and the deformity is so profound in the left that the globe of the eye cannot be seen, right eye has a significant periorbital swelling but the globe is exposed and he is able to relate that he is able to see the observer. He is also able to watch TV. The oral cavity has evidence of the significant deformities that include the tissue defect in the soft palate appears to go to the right maxillary sinus, a much smaller defect on the left soft palate also appears to go to the sinus on the left but with the significant swelling in his left evident. There was no purulent drainage in either area. Neck: The neck is supple without significant lymphadenopathy or thyromegaly. Lungs: Good bilateral air entry scattered wheezing. There is no significant bronchial sounds. There is no egophony or dullness. Heart: Regular rate and rhythm with an audible S1-S2, no S3 no S4. There is no significant murmur click or rub, PMI was nondisplaced. Abdomen: Positive bowel sounds soft and nontender without palpable masses or organomegaly. There was no guarding or rebound. Extremities: The upper extremities have excellent pulses they are symmetric, no significant petechiae or telangiectasia. No splinter hemorrhages were noted. The lower extremities are free from significant edema. The peripheral pulses were 2+ and symmetric. Neuro: Awake alert oriented to person place and time. There are no acute new gross focal sensory motor deficits.no vision on the left eye could be noted. - Labs CBC & Chem 7: 10/26/18 23:03 10/28/18 07:20 Labs: Abnormal Lab Results - Last 24 Hours (Table) 10/28/18 Range/Units 07:20 Chloride 108 H (98-107) mmol/L Creatinine 0.55 L (0.66-1.25) mg/dL Total Bilirubin 0.1 L (0.2-1.3) mg/dL AST 70 H (17-59) U/L ALT 88 H (21-72) U/L Total Protein 5.4 L (6.3-8.2) g/dL Albumin 2.7 L (3.5-5.0) g/dL Microbiology - Last 24 Hours (Table) 10/26/18 23:03 Blood Culture - Preliminary Blood No Growth after 24 hours Laboratory Results WBC 2.2 k/uL (3.8-10.6) L 10/26/18 23:03 RBC 4.24 m/uL (4.30-5.90) L 10/26/18 23:03 Hgb 10.3 gm/dL (13.0-17.5) L 10/26/18 23:03 Hct 33.3 % (39.0-53.0) L 10/26/18 23:03 MCV 78.7 fL (80.0-100.0) L 10/26/18 23:03 MCH 24.4 pg (25.0-35.0) L 10/26/18 23:03 MCHC 31.0 g/dL (31.0-37.0) 10/26/18 23:03 RDW 21.0 % (11.5-15.5) H 10/26/18 23:03 Plt Count 147 k/uL (150-450) L 10/26/18 23:03 Neutrophils % (Manual) 60 % 10/26/18 23:03 Band Neutrophils % 1 % 10/26/18 23:03 Lymphocytes % (Manual) 28 % 10/26/18 23:03 Monocytes % (Manual) 11 % 10/26/18 23:03 Neutrophils # (Manual) 1.30 k/uL (1.3-7.7) 10/26/18 23:03 Lymphocytes # (Manual) 0.62 k/uL (1.0-4.8) L 10/26/18 23:03 Monocytes # (Manual) 0.24 k/uL (0-1.0) 10/26/18 23:03 Nucleated RBCs 0 /100 WBC (0-0) 10/26/18 23:03 Manual Slide Review Performed 10/26/18 23:03 Anisocytosis Moderate 10/26/18 23:03 Microcytosis Moderate 10/26/18 23:03 Sodium 140 mmol/L (137-145) 10/28/18 07:20 Potassium 4.4 mmol/L (3.5-5.1) 10/28/18 07:20 Chloride 108 mmol/L (98-107) H 10/28/18 07:20 Carbon Dioxide 28 mmol/L (22-30) 10/28/18 07:20 Anion Gap 4 mmol/L 10/28/18 07:20 BUN 16 mg/dL (9-20) 10/28/18 07:20 Creatinine 0.55 mg/dL (0.66-1.25) L 10/28/18 07:20 Est GFR (CKD-EPI)AfAm >90 (>60 ml/min/1.73 sqM) 10/28/18 07:20 Est GFR (CKD-EPI)NonAf >90 (>60 ml/min/1.73 sqM) 10/28/18 07:20 Glucose 98 mg/dL (74-99) 10/28/18 07:20 Calcium 8.5 mg/dL (8.4-10.2) 10/28/18 07:20 Total Bilirubin 0.1 mg/dL (0.2-1.3) L 10/28/18 07:20 AST 70 U/L (17-59) H 10/28/18 07:20 ALT 88 U/L (21-72) H 10/28/18 07:20 Alkaline Phosphatase 63 U/L (38-126) 10/28/18 07:20 Total Protein 5.4 g/dL (6.3-8.2) L 10/28/18 07:20 Albumin 2.7 g/dL (3.5-5.0) L 10/28/18 07:20 Vancomycin Trough 5.4 ug/mL 10/28/18 13:35 Hepatitis A IgM Ab Non-Reactive (Non-Reactive) 10/26/18 23:03 Hep Bs Antigen Non-Reactive (Non-Reactive) 10/26/18 23:03 Hep B Core IgM Ab Non-Reactive (Non-Reactive) 10/26/18 23:03 Hep C IgG Ab Non-Reactive (Non-Reactive) 10/26/18 23:03 Microbiology 10/26/18 23:03 Blood Blood Culture - Preliminary No Growth after 24 hours Assessment and Plan (1) Extranodal NK/T-cell lymphoma, 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 The patient is quite miserable, with swelling and discomfort to the region. Left eye is grossly swollen and the globe cannot be seen. Right eye is swollen but is able to see and watch TV. Patient is being evaluated by oncology for the next plans. For now the severe infection in the region is being treated. Looking for some information from [facility] as far as cultures. They had him on Zyvox, Levaquin and metronidazole. In hospital he is being treated with vancomycin, and meropenem has been added for the sinus based infection. The patient is grossly underweight and protein supplements and been requested the patient does not have true difficulty with swallowing but does have somewhat of a poor appetite. May need stimulants. Patient will likely need IV access and arrangements for outpatient venous antibiotic therapy, may be challenging because of their home in [place]. There is crusting and irritation of the tissue just below the nasal septum and mupirocin is requested to be applied to that region. Patient would do well to have social work administrator evaluation. 10/28/2018 patient has had some agitation but he has now calmed down and actually relates is feeling slightly better. There is a bit worried because the oral pain medication did not seem to be nearly as effective as the IV. He is very anxious about the plans. Goal is to arrange outpatient intravenous antibiotic therapy so he can start his chemotherapy as soon as possible to try to allow him to have some improvement of his current status. Cultures negative so far. Current Visit: Yes Status: Acute Code(s): L03.211 - CELLULITIS OF FACE SNOMED Code(s): 436557502
[2018-10-29] MEDS: SALT AND SODA MOUTHWASH 1,000 ML PO SCH ×4 (01:06→15:50)
[2018-10-29] MEDS: MEROPENEM 1 GM in SODIUM CHLORIDE 0.9% 100 ML IVPB SCH ×3 (01:36→15:49)
[2018-10-29] MEDS: MORPHINE SULFATE IR 15 MG TABLET PO PRN ×6 (01:45→18:26)
[2018-10-29] MEDS: SODIUM CHLORIDE 0.9% 1,000 ML IV SCH ×2 (04:11→18:21)
[2018-10-29 05:05] VITALS: PULSE 80
[2018-10-29] MEDS: VANCOMYCIN 1,000 MG in SODIUM CHLORIDE 0.9% 250 ML IVPB SCH ×2 (06:06→15:39)
[2018-10-29] MEDS: ALPRAZolam 0.25 MG TAB PO SCH ×2 (08:09→15:51)
[2018-10-29] MEDS: PANTOPRAZOLE 40 MG TABLET PO SCH ×2 (08:09→08:12)
[2018-10-29] MEDS: IBUPROFEN 600 MG TAB PO SCH ×3 (08:10→18:27)
[2018-10-29] MEDS: predniSONE 20 MG TAB PO SCH (08:12)
[2018-10-29] MEDS: FAMOTIDINE 20 MG TAB PO SCH (08:12)
[2018-10-29] MEDS: NICOTINE 21MG/24HR PATCH TRANSDERM SCH (08:12)
[2018-10-29] MEDS: MUPIROCIN 2% OINT 22 GM TUBE TOPICAL SCH ×2 (08:18→15:49)
[2018-10-29 09:23] LABS: African American GFR (CKD) >90 (>60 ml/min/1.73 sqM); Anion Gap 7 mmol/L; Blood Urea Nitrogen 22 mg/dL (9-20); Calcium 8.7 mg/dL (8.4-10.2); Carbon Dioxide 22 mmol/L (22-30); Chloride 112 mmol/L (98-107); Glucose 87 mg/dL (74-99); Potassium 4.9 mmol/L (3.5-5.1); Sodium 141 mmol/L (137-145)
[2018-10-29] MEDS ORDERED: IV FLUID CONTINUATION 1,000 ML IV ONE (09:38)
[2018-10-29] MEDS ORDERED: LIDOCAINE 1% INJ 10MG/ML (20 ML MDV) ONE (09:40)
[2018-10-29] MEDS ORDERED: LIDOCAINE 1% INJ 10MG/ML (20 ML MDV) SQ ONE (09:44)
[2018-10-29 10:57] LABS: Anisocytosis Moderate; HCT 27.4 % (39.0-53.0); MCH 25.7 pg (25.0-35.0); MCHC 32.3 g/dL (31.0-37.0); MCV 79.8 fL (80.0-100.0); Mean Platelet Volume 6.7; Microcytosis Moderate; Platelet Count 181 k/uL (150-450); RBC 3.43 m/uL (4.30-5.90); RDW 21.5 % (11.5-15.5); WBC 2.1 k/uL (3.8-10.6)
[2018-10-29 11:06] LABS: HGB 8.8 gm/dL (13.0-17.5)
--- NOTE | 2018-10-29 11:08 | IR ---
PICC LINE PLACEMENT: HISTORY: Infection requiring long-term antibiotic therapy PROCEDURE: Ultrasound and fluoroscopic guidance of PICC line placement. COMPLICATIONS: None ANESTHESIA: 1. 1% Lidocaine locally. FINDINGS/TECHNIQUE: The procedure was explained to the patient. The risks, complications, benefits and alternatives were discussed and any questions were answered. Informed consent was obtained. The patient was placed supine on the fluoroscopic table and prepped and draped in the usual sterile fash ion. Utilizing a 21 gauge needle and sonographic and fluoroscopic guidance, access in the left basi lic vein was achieved and there is placement of a 0.018 guidewire. The vein is patent. A 4-F sheath was placed over the guidewire. The guidewire and dilator were removed and a 4-F. PICC line was plac ed through the sheath with the tip at the level of the SVC. The sheath was removed, the catheter was flushed and sutured into position. The patient was stable throughout the procedure and remained sta ble upon discharge from the Department of Radiology. The vein puncture was patent under ultrasound. A cochran scale image was obtained to document patency of the vein punctured. All elements of the maximal barrier technique were utilized. FLUOROSCOPY TIME: 0.2 minutes and one image submitted IMPRESSION: Successful PICC line placement under ultrasound and fluoroscopic guidance.
[2018-10-29 12:06] VITALS: BP 118/71; RESP 20; TEMP 98.2
[2018-10-29] MEDS ORDERED: VANCOMYCIN TROUGH DUE 1 EACH MISC MISCELLANE ONE (13:00)
--- NOTE | 2018-10-29 13:02 | P.DS ---
Providers Date of admission: 10/27/18 04:13 Expected date of discharge: 10/29/18 Attending physician: Kiesha Da Silva Consults: 10/27/18 09:59 Consult Physician Routine Consulting Provider: Colton Hernandez Consult Reason/Comments: facial cellulitis Do you want consulting provider notified?: Already Contacted 10/27/18 12:06 Consult Physician Routine Consulting Provider: Dangelo Freeman Consult Reason/Comments: lymphoma Do you want consulting provider notified?: Already Contacted Primary care physician: Stated None Hospital Course: Final diagnosis Non-Hodgkin's lymphoma Bilateral orbital cellulitis Elevated liver enzymes Discharge disposition Patient is being discharged in stable condition with guarded prognosis to home and will receive IV antibiotics in an outpatient setting through home care services. Infectious disease has arranged for IV antibiotics. Patient will be sent home on oral prednisone with a taper. History of present illness This is a 33-year-old male with a history of non-Hodgkin's lymphoma who was recently admitted for facial cellulitis concurrently receiving IV antibiotics. Patient is receiving a PICC line today for continued antibiotic therapy per infectious disease recommendations. Patient will also be visited with home care and following with them. Oncology is following the patient. Patient is to follow-up with them for future plan of care. Patient denies any shortness of breath, throat swelling, chest pain, or palpitations. Patient denies any nausea, vomiting, or diarrhea. Patient states that he is still having some orbital swelling and feels that that has slightly decreased but is still having a lot of swelling in the nose. Patient states that he feels his upper cheeks have gotten better as well. Patient is looking forward to going home and understands the treatment plan. On exam patient is sitting up at the site of the bed in no acute distress. Vital signs are stable. Blood pressure is 117/79, heart rate is 80, respirations are 18 and non-labored, temp is 97.9F, oxygen saturation is 99% on room air. Cardio S1 and S2 are normal. Respirations are clear to auscultation and non-labored. Abdomen is soft and non-tender with no masses palpable. Nervous system shows no focal deficits and gait is steady. Please refer to medication reconciliation sheet for a list of medications. Patient Condition at Discharge: Serious Plan - Discharge Summary Discharge Rx Participant: Yes New Discharge Prescriptions: New Meropenem [Merrem] 1 gm IVPB Q8H #42 vial Pantoprazole [Protonix] 40 mg PO AC-BID 60 Days #30 tablet. Vancomycin 1,000 mg IVPB Q8H #42 vial Mupirocin 2% Oint [Bactroban 2% Oint] 1 applic TOPICAL TID #1 applic Meropenem [Merrem] 1 gm IVPB Q8HR vial predniSONE 10 mg PO DIRECTED #30 tab Continue metroNIDAZOLE [Flagyl] 500 mg PO TID Lovenox (Unknown Mg) 1 injection SQ DAILY Discontinued Linezolid [Zyvox] 600 mg PO Q12HR Levofloxacin [Levaquin] 750 mg PO DAILY Discharge Medication List Lovenox (Unknown Mg) 1 injection SQ DAILY 10/26/18 [History] metroNIDAZOLE [Flagyl] 500 mg PO TID 10/26/18 [History] Meropenem [Merrem] 1 gm IVPB Q8H #42 vial 10/28/18 [Rx] Pantoprazole [Protonix] 40 mg PO AC-BID 60 Days #30 tablet. 10/28/18 [Rx] Meropenem [Merrem] 1 gm IVPB Q8HR vial 10/29/18 [Rx] Mupirocin 2% Oint [Bactroban 2% Oint] 1 applic TOPICAL TID #1 applic 10/29/18 [Rx] Vancomycin 1,000 mg IVPB Q8H #42 vial 10/29/18 [Rx] predniSONE 10 mg PO DIRECTED #30 tab 10/29/18 [Rx] Follow up Appointment(s)/Referral(s): Colton Hernandez MD [STAFF PHYSICIAN] - 11/18/18 3:00 pm [facility], [NON-STAFF] - 1-2 Days None,Stated [Primary Care Provider] - 1-2 days Tomi Kirkland MD [STAFF PHYSICIAN] - 11/01/18 2:00 pm (This is appointment for cancer treatment. Patient needs to be on the second floor the [facility] at the [facility].) Ambulatory/Diagnostic Orders: Basic Metabolic Panel [LAB.AMB] Location: None Selected Complete Blood Count w/diff [LAB.AMB] Location: None Selected Miscellaneous Lab Order [LAB.AMB] Location: None Selected Activity/Diet/Wound Care/Special Instructions: [facility] will be providing the IVABX and can be contacted at [phone]. Discharge Disposition: HOME WITH HOME HEALTH SERVICES
--- NOTE | 2018-10-29 14:30 | P.PN ---
Subjective Progress Note Date: 10/29/18 Principal diagnosis: Lymphoma MSIR was effective to control pain overnight. Objective - Vital Signs Vital signs: Vital Signs Temp 98.2 F 10/29/18 12:05 Pulse 80 10/29/18 04:26 Resp 20 10/29/18 12:05 BP 118/71 10/29/18 12:05 Pulse Ox 99 10/29/18 12:05 Intake & Output 10/28/18 10/29/18 10/29/18 18:59 06:59 18:59 Intake Total 350 2040 Output Total 1600 1800 Balance -1250 240 Intake: Intake, IV Titration 350 1560 Amount Meropenem 1 gm In Sodium 100 Chloride 0.9% 100 ml @ 200 mls/hr IVPB Q8HR JASMYN Rx#:[id number] Sodium Chloride 0.9% 1, 100 960 000 ml @ 80 mls/hr IV . [id number] JASMYN Rx#:[id number] Vancomycin 1,000 mg In 250 500 Sodium Chloride 0.9% 250 ml @ 125 mls/hr IVPB Q8H JASMYN Rx#:[id number] Oral 480 Output: Urine 1600 1800 Other: Voiding Method Toilet Toilet Toilet Urinal Urinal Urinal # Voids 2 - Exam Gen: Alert and oriented Head: Periorbital swelling, nasal swelling and upper lip, causing speech deficiency. Patient is able to manually open his right eye slightly Lungs: No increased Effort, CTA Heart: Tachy, Regular Abdomen: S/ND Ext: No edema Psych: Anxious - Labs CBC & Chem 7: 10/29/18 10:30 10/29/18 08:40 Labs: Abnormal Lab Results - Last 24 Hours (Table) 10/29/18 10/29/18 Range/Units 08:40 10:30 WBC 2.1 L (3.8-10.6) k/uL RBC 3.43 L (4.30-5.90) m/uL Hgb 8.8 L D (13.0-17.5) gm/dL Hct 27.4 L (39.0-53.0) % MCV 79.8 L (80.0-100.0) fL RDW 21.5 H (11.5-15.5) % Chloride 112 H (98-107) mmol/L BUN 22 H (9-20) mg/dL Creatinine 0.51 L (0.66-1.25) mg/dL Microbiology - Last 24 Hours (Table) 10/26/18 23:03 Blood Culture - Preliminary Blood No Growth after 48 hours Assessment and Plan Plan: Cancer related pain - Likely exacerbated by superimposed infection as well. - Pain medications have been adjusted to oral route. They were assessed for 24 hours and MSIR, Ibuprofen, and Xanax did show approppriate coverage for control - A 3 day Prescription provided and will follow-up in office where contract, education and full prescription can be given - Medications for prevention of narcotic-induced constipation ordered. Extranodal NK/T-cell lymphoma, nasal type - Recurrent disease, previously treated at [facility]. - CD-30 target immunotherapy with brentuximab vedotin is approved. It has been ordered. - Plan is for chemotherapy Thursday at 2 PM. - PICC line is placed. Education has been provided on Picc - Case management is working on outpatient antibiotic administration. Cellulitis
--- NOTE | 2018-10-29 17:05 | P.PN ---
Subjective Progress Note Date: 10/29/18 33-year-old male who has a history of NK/T cell lymphoma diagnosed approximately 1 year ago at which point in time there was involvement of the bilateral sinuses in the left orbital area. He was treated with chemotherapy and had progression of disease. Because the difficulties he is referred to [facility] and was treated. He then, because of progression of disease, was treated with a course of radiation therapy and cisplatin and apparently had significant clinical improvement. It is unrelated that he was no longer actively following up. He now presents last month with significant swelling and discomfort to the periorbital area bilaterally. He has significant swelling to the left eye such that its closed and he does not see through that eye. The right periorbital tissue also became very swollen. Because of increasing pain and discomfort and drainage he sought care at our facility. He does relate that he was at [facility] and was being treated with antibiotic therapy that included Zyvox, Levaquin, and Flagyl likely for what appeared to be a potential abscess related to the lymphoma near the left orbit. There is no notation that he was a surgical candidate. The patient was stressed by the situation at the [facility] and consequently did leave canalis presented to our facility. Local oncology is also seeing on consult. The patient believes that he's had a low-grade fever, he has had weight loss of greater than 20 pounds and is now become quite underweight. He does have some difficulties eating but is able to eat solid foods without choking or dysphagia. The patient does not have a port. 10/28/2018 patient does feel slightly better today. He however has had significant anxiety that has worsened due to his inability to smoke and his significant disease state. At one point he states to the nurse, why won't she let him smoke, he is going to anyway. At this time he is more calm and collected. He understands that with his active infection tobacco use inhibits his body to fight infection and causes him to have more pain and problems. Nicotine patch and chocolate ice cream have helped his mood. He does relate that the oral pain medication does not seem to be as effective, and this is related to the oncology team. Request for IV access as well as outpatient IV antibiotic therapy has been made trying to get authorization for his medication so that he can start his chemotherapy as soon as possible. 10/29/2018 patient is doing considerably better today. Pain and swelling have improved. Redness of the face is improved. Appetite is improved. Mood is improved. Overall he seems to be tolerating the current interventions well. There is a goal for him to be discharged so he can start his immunotherapy soon. Objective - Vital Signs Vital signs: Vital Signs Temp 98.2 F 10/29/18 12:05 Pulse 80 10/29/18 04:26 Resp 20 10/29/18 12:05 BP 118/71 10/29/18 12:05 Pulse Ox 99 10/29/18 12:05 Intake & Output 10/28/18 10/29/18 10/29/18 18:59 06:59 18:59 Intake Total 350 2040 750 Output Total 1600 1800 1700 Balance -1250 240 -950 Intake: Intake, IV Titration 350 1560 750 Amount Meropenem 1 gm In Sodium 100 100 Chloride 0.9% 100 ml @ 200 mls/hr IVPB Q8HR JASMYN Rx#:[id number] Sodium Chloride 0.9% 1, 100 960 400 000 ml @ 80 mls/hr IV . [id number] JASMYN Rx#:[id number] Vancomycin 1,000 mg In 250 500 250 Sodium Chloride 0.9% 250 ml @ 125 mls/hr IVPB Q8H JASMYN Rx#:[id number] Oral 480 Output: Urine 1600 1800 1700 Other: Voiding Method Toilet Toilet Toilet Urinal Urinal Urinal # Voids 2 - Exam 33-year-old male who despite his cancer was pleasant and cooperative, appreciative of the care he is receiving at our facility. HEENT: There is some improvement of swelling from taoism to taoism, bilateral periorbital area is grossly swollen and the deformity is so profound in the left that the globe of the eye cannot be seen, right eye has a significant periorbita l swelling but the globe is exposed and he is able to relate that he is able to see the observer. He is also able to watch TV. The oral cavity has evidence of the significant deformities that include the tissue defect in the soft palate appears to go to the right maxillary sinus, a much smaller defect on the left soft palate also appears to go to the sinus on the left but with the significant swelling in his left evident. There was no purulent drainage in either area. Neck: The neck is supple without significant lymphadenopathy or thyromegaly. Lungs: Good bilateral air entry scattered wheezing. There is no significant bronchial sounds. There is no egophony or dullness. Heart: Regular rate and rhythm with an audible S1-S2, no S3 no S4. There is no significant murmur click or rub, PMI was nondisplaced. Abdomen: Positive bowel sounds soft and nontender without palpable masses or organomegaly. There was no guarding or rebound. Extremities: The upper extremities have excellent pulses they are symmetric, no significant petechiae or telangiectasia. No splinter hemorrhages were noted. The lower extremities are free from significant edema. The peripheral pulses were 2+ and symmetric. Neuro: Awake alert oriented to person place and time. There are no acute new gross focal sensory motor deficits.no vision on the left eye could be noted. - Labs CBC & Chem 7: 10/29/18 10:30 10/29/18 08:40 Labs: Abnormal Lab Results - Last 24 Hours (Table) 10/29/18 10/29/18 Range/Units 08:40 10:30 WBC 2.1 L (3.8-10.6) k/uL RBC 3.43 L (4.30-5.90) m/uL Hgb 8.8 L D (13.0-17.5) gm/dL Hct 27.4 L (39.0-53.0) % MCV 79.8 L (80.0-100.0) fL RDW 21.5 H (11.5-15.5) % Chloride 112 H (98-107) mmol/L BUN 22 H (9-20) mg/dL Creatinine 0.51 L (0.66-1.25) mg/dL Microbiology - Last 24 Hours (Table) 10/26/18 23:03 Blood Culture - Preliminary Blood No Growth after 48 hours Laboratory Results WBC 2.1 k/uL (3.8-10.6) L 10/29/18 10:30 RBC 3.43 m/uL (4.30-5.90) L 10/29/18 10:30 Hgb 8.8 gm/dL (13.0-17.5) L D 10/29/18 10:30 Hct 27.4 % (39.0-53.0) L 10/29/18 10:30 MCV 79.8 fL (80.0-100.0) L 10/29/18 10:30 MCH 25.7 pg (25.0-35.0) 10/29/18 10:30 MCHC 32.3 g/dL (31.0-37.0) 10/29/18 10:30 RDW 21.5 % (11.5-15.5) H 10/29/18 10:30 Plt Count 181 k/uL (150-450) 10/29/18 10:30 Neutrophils % (Manual) 60 % 10/26/18 23:03 Band Neutrophils % 1 % 10/26/18 23:03 Lymphocytes % (Manual) 28 % 10/26/18 23:03 Monocytes % (Manual) 11 % 10/26/18 23:03 Neutrophils # (Manual) 1.30 k/uL (1.3-7.7) 10/26/18 23:03 Lymphocytes # (Manual) 0.62 k/uL (1.0-4.8) L 10/26/18 23:03 Monocytes # (Manual) 0.24 k/uL (0-1.0) 10/26/18 23:03 Nucleated RBCs 0 /100 WBC (0-0) 10/26/18 23:03 Manual Slide Review Performed 10/26/18 23:03 Anisocytosis Moderate 10/29/18 10:30 Microcytosis Moderate 10/29/18 10:30 Sodium 141 mmol/L (137-145) 10/29/18 08:40 Potassium 4.9 mmol/L (3.5-5.1) 10/29/18 08:40 Chloride 112 mmol/L (98-107) H 10/29/18 08:40 Carbon Dioxide 22 mmol/L (22-30) 10/29/18 08:40 Anion Gap 7 mmol/L 10/29/18 08:40 BUN 22 mg/dL (9-20) H 10/29/18 08:40 Creatinine 0.51 mg/dL (0.66-1.25) L 10/29/18 08:40 Est GFR (CKD-EPI)AfAm >90 (>60 ml/min/1.73 sqM) 10/29/18 08:40 Est GFR (CKD-EPI)NonAf >90 (>60 ml/min/1.73 sqM) 10/29/18 08:40 Glucose 87 mg/dL (74-99) 10/29/18 08:40 Calcium 8.7 mg/dL (8.4-10.2) 10/29/18 08:40 Total Bilirubin 0.1 mg/dL (0.2-1.3) L 10/28/18 07:20 AST 70 U/L (17-59) H 10/28/18 07:20 ALT 88 U/L (21-72) H 10/28/18 07:20 Alkaline Phosphatase 63 U/L (38-126) 10/28/18 07:20 Total Protein 5.4 g/dL (6.3-8.2) L 10/28/18 07:20 Albumin 2.7 g/dL (3.5-5.0) L 10/28/18 07:20 Vancomycin Trough 13.1 ug/mL 10/29/18 14:10 Hepatitis A IgM Ab Non-Reactive (Non-Reactive) 10/26/18 23:03 Hep Bs Antigen Non-Reactive (Non-Reactive) 10/26/18 23:03 Hep B Core IgM Ab Non-Reactive (Non-Reactive) 10/26/18 23:03 Hep C IgG Ab Non-Reactive (Non-Reactive) 10/26/18 23:03 Microbiology 10/26/18 23:03 Blood Blood Culture - Preliminary No Growth after 48 hours Assessment and Plan (1) Extranodal NK/T-cell lymphoma, 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 The patient is quite miserable, with swelling and discomfort to the region. Left eye is grossly swollen and the globe cannot be seen. Right eye is swollen but is able to see and watch TV. Patient is being evaluated by oncology for the next plans. For now the severe infection in the region is being treated. Looking for some information from [facility] as far as cultures. They had him on Zyvox, Levaquin and metronidazole. In hospital he is being treated with vancomycin, and meropenem has been added for the sinus based infection. The patient is grossly underweight and protein supplements and been requested the patient does not have true difficulty with swallowing but does have somewhat of a poor appetite. May need stimulants. Patient will likely need IV access and arrangements for outpatient venous antibiotic therapy, may be challenging because of their home in [place]. There is crusting and irritation of the tissue just below the nasal septum and mupirocin is requested to be applied to that region. Patient would do well to have social and political studies professor evaluation. 10/28/2018 patient has had some agitation but he has now calmed down and actually relates is feeling slightly better. There is a bit worried because the oral pain medication did not seem to be nearly as effective as the IV. He is very anxious about the plans. Goal is to arrange outpatient intravenous antibiotic therapy so he can start his chemotherapy as soon as possible to try to allow him to have some improvement of his current status. Cultures negative so far. 10/29/2018 reveals the patient to be improved.His pain is better controlled with current medications. The pain swelling and erythema have all improved. Copious purulent drainage from the left eye is also improved. The patient's discomforts have improved as the swelling improved. The cellulitis to the pericardial area is improved also. Goal for the patient to be discharged home to complete his course of antibiotic therapy currently at scheduled is vancomycin and Merrem which will be he can facilitate in the home setting with the assistance of his fiance mother and mother's boyfriend. He believed will be discharged home and he is presenting back to [facility] Thursday to initiate his immunotherapy for his NK/T-cell lymphoma. She'll follow-up in the office in the next 2 weeks. Current Visit: Yes Status: Acute Code(s): L03.211 - CELLULITIS OF FACE SNOMED Code(s): 325913496
== END 2018-10-29 18:45 | disposition home health service (06) | DRG 121 ==
LOC: EC 21:39 → 3NMEDONC 10-27 04:13
PROVIDERS: ADMIT Internal Medicine; ATTEND Internal Medicine
PROC: 02HV33Z Insertion of Infusion Device into Superior Vena Cava, Percutaneous Approach (ICD-10-PCS; principal; 2018-10-29 09:28)
DX: H05.013 Cellulitis of bilateral orbits (principal); C86.0 Extranodal NK/T-cell lymphoma, nasal type; Z68.1 Body mass index [BMI] 19.9 or less, adult; D70.9 Neutropenia, unspecified; F17.210 Nicotine dependence, cigarettes, uncomplicated; G89.3 Neoplasm related pain (acute) (chronic); R63.6 Underweight; Z83.3 Family history of diabetes mellitus; Z92.21 Personal history of antineoplastic chemotherapy; Z92.3 Personal history of irradiation; R74.8 Abnormal levels of other serum enzymes; Z79.899 Other long term (current) drug therapy
CPT/HCPCS: 36415; 36573; 70450; 70487; 80048; 80053; 80074; 80202; 85025; 85027; 87040; 96365; 96366; 96368; 96375; 99285

== ENCOUNTER 2018-12-09 13:34 | Day surgery (SDC) | payer OTHER ==
[2018-12-07 15:24] VITALS: BMI 18.8
[2018-12-09 14:08] VITALS: BP 107/60; PULSE 94; RESP 20
[2018-12-09] MEDS ORDERED: LIDOCAINE 1% INJ 10MG/ML (20 ML MDV) SQ ONE (14:50)
--- NOTE | 2018-12-10 09:16 | IR ---
PICC LINE PLACEMENT: HISTORY: Chemotherapy, Infection requiring long-term antibiotic therapy PROCEDURE: Ultrasound and fluoroscopic guidance of PICC line placement. COMPLICATIONS: None ANESTHESIA: 1. 1% Lidocaine locally. FINDINGS/TECHNIQUE: The procedure was explained to the patient. The risks, complications, benefits and alternatives were discussed and any questions were answered. Informed consent was obtained. The patient was placed supine on the fluoroscopic table and prepped and draped in the usual sterile formerly [facility] ion. Utilizing a 21 gauge needle and sonographic and fluoroscopic guidance, access in the right bra chial vein was achieved and there is placement of a 0.018 guidewire. The vein is patent. A 5-Fr she ath was placed over the guidewire. The guidewire and dilator were removed and a 5-F. Double lumen PI CC line was placed through the sheath with the tip at the level of the SVC. The sheath was removed, the catheter was flushed and sutured into position. The patient was stable throughout the procedure and remained stable upon discharge from the Department of Radiology. The vein puncture was patent under ultrasound. A cochran scale image was obtained to document patency of the vein punctured. All elements of the maximal barrier technique were utilized. FLUOROSCOPY TIME: 0.2 minutes and one image submitted IMPRESSION: Successful PICC double lumen line placement under ultrasound and fluoroscopic guidance.
== END 2018-12-09 15:40 | disposition home or self-care (01) ==
LOC: CATHCVL 13:34
PROVIDERS: ATTEND Radiology Diagnostic Radiology
DX: L03.211 Cellulitis of face (principal); C86.0 Extranodal NK/T-cell lymphoma, nasal type; Z92.21 Personal history of antineoplastic chemotherapy; Z92.3 Personal history of irradiation
CPT/HCPCS: 36573; C1751; C1769; J2001